=== PATIENT | female | born 1960 | race Caucasian/White ===

== ENCOUNTER → 2018-05-06 | Outpatient (CLI) | payer MEDICARE | LOC: LAB SHORT 16:30 → LAB 16:30 | DX: N12 Tubulo-interstitial nephritis, not specified as acute or chronic (principal) | CPT/HCPCS: 87077; 87086; 87186 ==

== ENCOUNTER → 2019-03-31 | Outpatient (CLI) | payer MEDICARE ==
[2019-03-31 17:38] LABS: Bilirubin, Urine Neg (Neg); Blood, Urine 3+ (Neg); Glucose Qualitative, Urine Neg (Neg); Ketones, Urine 1+ (Neg); Leukocyte Esterase, Urine Neg (Neg); Nitrite, Urine Neg (Neg); Protein, Urine Neg (Neg); Urobilinogen, Urine NORM (Normal)
[2019-03-31 18:15] LABS: Appearance, Urine Clear (Clear); Color, Urine Yellow (P-Yellow)
[2019-03-31 18:19] LABS: Bacteria Few /hpf; Squamous Epithelial Cells Few /hpf (Few); White Blood Cells, Urine 0-2 /hpf (0-5)
== END | disposition home or self-care (01) ==
LOC: LAB 17:21 → LAB SHORT 17:21
PROVIDERS: Registered Nurse
DX: R31.9 Hematuria, unspecified (principal)
CPT/HCPCS: 81001

== ENCOUNTER → 2025-09-17 | Outpatient (CLI) | payer MEDICARE ==
[~2025-09-17] MED LIST: ALEN70 PO; CLON1 PO; CYCL10 PO; DICL25ER PO; GABA300 PO; LEVSOD100 PO; LIDO700A20 TOP; Ventolin5 MG/1 ML INH; ZOCOR20 MG PO
== END | disposition home or self-care (01) ==
LOC: LAB SHORT 16:00 → LAB 16:00
DX: T14.8XXA Other injury of unspecified body region, initial encounter (principal)
CPT/HCPCS: 87070